=== PATIENT | male | born 1975 | race Hispanic/Latino ===

== ENCOUNTER 2017-11-23 15:34 | Emergency (ER) | payer OTHER ==
[2017-11-23 18:38] LABS: Potassium 3.6 mEq/L (3.6-5.0)
[2017-11-23 19:02] LABS: Absolute Lymphocytes (CBC) 2.7 K/uL (0.7-4.9); Absolute Monocytes 0.5 K/uL (0.1-1.3); Basophils % 0.5 % (0-1.3); Eosinophils % 4.5 % (0-4.4); Hematocrit 41.7 % (39.6-49.0); Lymphocytes % 35.3 % (15.3-44.8); MCH 25.6 pg (27.0-35.0); MCV 78.4 fL (80-100); MPV 8.7 fL (7.6-11.3); Monocytes % 6.4 % (3.3-12.3); RBC Red Blood Cell Count 5.32 M/uL (4.33-5.43)
[2017-11-23 19:34] LABS: Urine Blood NEGATIVE (NEG); Urine Glucose NEGATIVE (NEG); Urine Protein NEGATIVE (NEG); Urine Specific Gravity 1.015 (1.005-1.030); Urine pH 5.5 (5.0-7.0)
--- NOTE | 2017-11-23 19:50 | ER ---
Nurse's Notes [facility] Name: Farooq Anthony Age: 42 yrs Sex: Male : 1975 Arrival Date: 11/23/2017 Time: 15:40 Bed 27 Private MD: Diagnosis: Person with feared health complaint in whom no diagnosis is made Presentation: 11/23 15:47 Presenting complaint: Patient states: Patient states he two instances of feeling ae1 lightheaded this morning while standing. Transition of care: patient was not received from another setting of care. Onset of symptoms was November 23, 2017. Care prior to arrival: None. 15:47 Method Of Arrival: Ambulatory ae1 15:47 Acuity: KEILY 3 ae1 Triage Assessment: 15:46 General: Appears in no apparent distress. comfortable, Behavior is cooperative, ae1 anxious. Pain: Denies pain. Neuro: Level of Consciousness is awake, alert, obeys commands, Oriented to person, place, time, situation. Respiratory: Airway is patent Respiratory effort is even, unlabored. Historical: - Allergies: 15:49 No Known Allergies; ae1 - Home Meds: 15:49 Multiple Vitamins oral tab [Active]; ae1 - PMHx: 15:49 None; ae1 - PSHx: 15:49 None; ae1 - Immunization history:: Last tetanus immunization: > 10 years ago Flu vaccine is not up to date. It has been more than one year since last vaccine. - Social history:: Smoking status: Patient/guardian denies using tobacco, the patient reports quitting approximately 20 years ago. Screenin:50 Abuse screen: Denies threats or abuse. Nutritional screening: No deficits noted. ae1 Exposure risk/Travel Screening: Has been out of the country: Travelled to [place] Easter weekend. . 17:49 Tuberculosis screening: No symptoms or risk factors identified. Fall Risk None rs2 identified. Assessment: 17:07 Reassessment: Patient appears in no apparent distress at this time. Patient denies pain ae1 at this time. Neuro: Denies dizziness, denies feeling lightheaded at this time. . 17:08 Reassessment: Patient updated on wait time to be transferred to exam room. ae1 17:49 General: Appears in no apparent distress. comfortable, well groomed, well developed, rs2 well nourished, Behavior is calm, cooperative, appropriate for age. Pain: Denies pain. Cardiovascular: Reports lightheadedness, Pt states, "About 10:45 this morning I felt lightheaded. Just kind of dizzy." Pt denies N/V, pain, chest discomfort or SOB. Symptoms are resolved at this times. Respiratory: No deficits noted. GI: No deficits noted. Musculoskeletal: No deficits noted. 19:29 Reassessment: Patient is alert, oriented x 3, equal unlabored respirations, skin tl3 warm/dry/pink. pt resting quietly, call raymond in reach, no needs at this time. Vital Signs: 15:46 BP 140 / 88; Pulse 60; Resp 17; Temp 97.5(TE); Pulse Ox 97% on R/A; Weight 92.99 kg ae1 (R); Height 6 ft. (182.88 cm) (R); Pain 0/10; 17:08 BP 143 / 75; Pulse 66; Resp 16; Pulse Ox 99% on R/A; ae1 18:46 BP 144 / 89; Pulse 57; Resp 12; Pulse Ox 98% on R/A; mh5 19:53 BP 145 / 96; Pulse 56; Resp 16; Pulse Ox 100% ; tl3 15:46 Body Mass Index 27.80 (92.99 kg, 182.88 cm) ae1 ED Course: 15:40 Patient arrived in ED. mr 15:48 Triage completed. ae1 15:50 Arm band placed on left wrist. ae1 17:37 Patti Epps is Primary Nurse. rs2 17:46 Berta Schreiber FNP-C [facility]. kb 17:46 Shakir Castillo MD is Attending Physician. kb 17:49 Patient has correct armband on for positive identification. Bed in low position. Call rs2 light in reach. Side rails up X 1. 18:44 Initial lab(s) drawn, by me, sent to lab. Urine collected: EKG done, by ED staff, 5 reviewed by Berta STEPHENS. Inserted saline lock: 18 gauge in right forearm, using aseptic technique. Blood collected. 19:08 Report given to Pt report given to Scarlett DARLING. rs2 19:29 Primary Nurse role handed off by Patti Epps tl3 19:29 Shahla, Scarlett, RN is Primary Nurse. tl3 19:30 Door closed. Warm blanket given. tl3 Administered Medications: No medications were administered Outcome: 19:49 Discharge ordered by . kb 20:14 Patient left the ED. tl3 Signatures: Berta Schreiber, INSPECTOR COLD WORKING-C INSPECTOR COLD WORKING-Calli Rodriguez DelanoDavonte acosta RN RN ae1 Calli [facility] MichPatti rs2 Scarlett Gale, PHONG RN tl3
--- NOTE | 2017-11-23 19:50 | EDPHYS ---
Physician Documentation [facility] Name: Farooq Anthony Age: 42 yrs Sex: Male : 1975 Arrival Date: 11/23/2017 Time: 15:40 Bed 27 Private MD: ED Physician Shakir Castillo HPI: 11/23 18:30 This 42 yrs old Male presents to ER via Ambulatory with complaints of Light kb headed. 18:30 The patient presents with lightheadedness. Onset: The symptoms/episode began/occurred kb this morning. Context: occurred at work, occurred while the patient was standing, just prior to the episode the patient experienced no apparent symptoms. Modifying factors: The symptoms are alleviated by nothing, the symptoms are aggravated by nothing. Associated signs and symptoms: The patient has no apparent associated signs or symptoms. Severity of symptoms: At their worst the symptoms were mild in the emergency department the symptoms have resolved and did so earlier today. Patient's baseline: Neuro: alert and fully oriented, Motor: no deficits, Ambulation: walks without assistance, Speech: normal. The patient has not experienced similar symptoms in the past. The patient has not recently seen a physician. Pt states he had two episodes of lightheadedness this morning at 1045. States he has been fine since then, but wanted to come see if we could tell him why it happened this morning. . Historical: - Allergies: 15:49 No Known Allergies; ae1 - Home Meds: 15:49 Multiple Vitamins oral tab [Active]; ae1 - PMHx: 15:49 None; ae1 - PSHx: 15:49 None; ae1 - Immunization history:: Last tetanus immunization: > 10 years ago Flu vaccine is not up to date. It has been more than one year since last vaccine. - Social history:: Smoking status: Patient/guardian denies using tobacco, the patient reports quitting approximately 20 years ago. ROS: 18:27 Constitutional: Negative for fever, chills, and weight loss, Eyes: Negative for injury, kb pain, redness, and discharge, ENT: Negative for injury, pain, and discharge, Neck: Negative for injury, pain, and swelling, Cardiovascular: Negative for chest pain, palpitations, and edema, Respiratory: Negative for shortness of breath, cough, wheezing, and pleuritic chest pain, Abdomen/GI: Negative for abdominal pain, nausea, vomiting, diarrhea, and constipation, Back: Negative for injury and pain, : Negative for injury, bleeding, discharge, and swelling, MS/Extremity: Negative for injury and deformity, Skin: Negative for injury, rash, and discoloration, Neuro: Negative for headache, weakness, numbness, tingling, and seizure. Exam: 18:27 Constitutional: This is a well developed, well nourished patient who is awake, alert, kb and in no acute distress. Head/Face: Normocephalic, atraumatic. Eyes: Pupils equal round and reactive to light, extra-ocular motions intact. Lids and lashes normal. Conjunctiva and sclera are non-icteric and not injected. Cornea within normal limits. Periorbital areas with no swelling, redness, or edema. ENT: Nares patent. No nasal discharge, no septal abnormalities noted. Tympanic membranes are normal and external auditory canals are clear. Oropharynx with no redness, swelling, or masses, exudates, or evidence of obstruction, uvula midline. Mucous membranes moist. Chest/axilla: Normal chest wall appearance and motion. Nontender with no deformity. No lesions are appreciated. Cardiovascular: Regular rate and rhythm with a normal S1 and S2. No gallops, murmurs, or rubs. Normal PMI, no JVD. No pulse deficits. Respiratory: Lungs have equal breath sounds bilaterally, clear to auscultation and percussion. No rales, rhonchi or wheezes noted. No increased work of breathing, no retractions or nasal flaring. Abdomen/GI: Soft, non-tender, with normal bowel sounds. No distension or tympany. No guarding or rebound. No evidence of tenderness throughout. Back: No spinal tenderness. No costovertebral tenderness. Full range of motion. Skin: Warm, dry with normal turgor. Normal color with no rashes, no lesions, and no evidence of cellulitis. MS/ Extremity: Pulses equal, no cyanosis. Neurovascular intact. Full, normal range of motion. Neuro: Awake and alert, GCS 15, oriented to person, place, time, and situation. Cranial nerves II-XII grossly intact. Motor strength 5/5 in all extremities. Sensory grossly intact. Cerebellar exam normal. Normal gait. Vital Signs: 15:46 BP 140 / 88; Pulse 60; Resp 17; Temp 97.5(TE); Pulse Ox 97% on R/A; Weight 92.99 kg ae1 (R); Height 6 ft. (182.88 cm) (R); Pain 0/10; 17:08 BP 143 / 75; Pulse 66; Resp 16; Pulse Ox 99% on R/A; ae1 18:46 BP 144 / 89; Pulse 57; Resp 12; Pulse Ox 98% on R/A; mh5 19:53 BP 145 / 96; Pulse 56; Resp 16; Pulse Ox 100% ; tl3 15:46 Body Mass Index 27.80 (92.99 kg, 182.88 cm) ae1 MDM: 17:51 Patient medically screened. kb 18:29 Data reviewed: vital signs, nurses notes. Data interpreted: Pulse oximetry: on room air kb is 99 %. Interpretation: normal. Counseling: I had a detailed discussion with the patient and/or guardian regarding: the historical points, exam findings, and any diagnostic results supporting the discharge/admit diagnosis, lab results, the need for outpatient follow up, a family practitioner, to return to the emergency department if symptoms worsen or persist or if there are any questions or concerns that arise at home. 11/23 18:00 Order name: CBC with Diff; Complete Time: 19:44 kb 11/23 18:00 Order name: Basic Metabolic Panel; Complete Time: 18:44 kb 11/23 18:00 Order name: EKG; Complete Time: 18:00 kb 17 18:00 Order name: EKG - Nurse/Tech; Complete Time: 18:09 kb 11/23 18:17 Order name: Urine Dipstick--Ancillary (enter results); Complete Time: 19:34 bd Administered Medications: No medications were administered Disposition: 11/23/17 19:49 Discharged to Home. Impression: Person with feared health complaint in whom no diagnosis is made. - Condition is Stable. - Discharge Instructions: Dizziness, Nvto-el-Cmol. - Work release form, Medication Reconciliation Form, Thank You Letter, Antibiotic Education, Prescription Opioid Use form. - Follow up: Emergency Department; When: As needed; Reason: Worsening of condition. Follow up: Private Physician; When: 2 - 3 days; Reason: Recheck today's complaints, Continuance of care, Re-evaluation by your physician. Addendum: 11/27/2017 06:08 Co-signature as Attending Physician, Shakir Castillo MD Available for consultation at p s1 all times. . Signatures: Dispatcher [employer] Berta Ramon, MOBILE PHLEBOTOMIST-C MOBILE PHLEBOTOMIST-Davonte Richardson, RN RN ae1 Shakir Castillo MD MD ps1 Scarlett Gale RN RN tl3
--- NOTE | 2017-11-24 07:30 | EKG ---
Test Date: 2017-11-23 Test Time: 18:03:29 [employer] Car [employer] Mechanic: JUDY MEASUREMENT RESULTS: Intervals: Rate: 59 TX: 230 QRSD: 104 QT: 412 QTc: 407 Cosby: P: 16 TX: 230 QRS: -37 T: 0 INTERPRETIVE STATEMENTS: Sinus bradycardia with 1st degree AV block Left axis deviation Incomplete right bundle branch block Moderate voltage criteria for LVH, may be normal variant Abnormal ECG No previous ECG available for comparison Electronically Signed On 11-24-17 07:29:20 CDT by Seferino Payan
== END 2017-11-23 20:14 | disposition home or self-care (01) ==
LOC: ER 15:34
DX: Z71.1 Person with feared health complaint in whom no diagnosis is made (principal)
CPT/HCPCS: 36415; 80048; 81003; 85025; 93005; 99283